=== PATIENT | female | born 1940 | race Caucasian/White ===

== ENCOUNTER → 2016-08-03 | Outpatient (CLI) | payer MEDICARE, OTHER ==
[~2016-08-03] MED LIST: AMINOPHYLLINE INJ/PF 250 MG/10 ML SDV IV ONE; REGADENOSON INJ 0.4 MG/5 ML DISP.SYRIN IV ONE
--- NOTE | 2016-08-03 17:13 | DRAGON STRESS TEST REPORT ---
INTRAVENOUS LEXISCAN CARDIOLITE STRESS TEST USING SINGLE PHOTON EMMISION COMPUTERIZED TOMOGRAPHIC. DATE OF PROCEDURE: August 03, 2016 INDICATION : Coronary artery disease with prior history of myocardial infarction CARDIAC RISK FACTORS: Hypertension, dyslipidemia. RESTING EKG: Sinus rhythm, no baseline ST segment changes noted STRESS EKG: No significant changes noted with LexiScan bolus REASON FOR TERMINATION: Protocol. PROCEDURE REPORT: Baseline heart rate 69 beats per minute with blood pressure of 176/77. Patient had no significant complaints. Heart rate at 2 minutes post bolus 97 with a blood pressure of 175/54. 3 minutes post bolus heart rate 98 with blood pressure of 164/50. No significant EKG changes were noted. Patient had no significant complaints during the procedure or postprocedure. Patient injected with Aminophyllin 75 mg at 3 minutes or later after Lexiscan bolus. CONCLUSIONS: Normal EKG and hemodynamic response to IV LexiScan. NUCLEAR DATA: At rest the patient was given 10.71 millicuries of technetium 99 sestamibi injected intravenously. As per protocol rest gated SPECT images were obtained. Subsequently the patient was given intravenous LexiScan at a dose of 0.4 mg in 5 mL intravenously, followed by flush with normal saline. Subsequently the stress dose of 32.4 millicuries of technetium 99 sestamibi was injected intravenously. As per protocol stress gated images were obtained. NUCLEAR INTERPRETATION: Both raw and processed data were used for interpretation. Visual, qualitative, computer-generated quantitative data was used. There was good myocardial uptake of technetium compound. Motion artifact and soft tissue attenuations were noted. Increased visceral uptake was noted. No definitive areas of transient perfusion defect noted. No definitive areas of fixed perfusion defect or scars noted. EKG gated imaging showed LV EF at 68 %, rest and stress gated EF similar visually. T. I D. ratio was 1.02. Lung heart ratio noted to be within normal limits 0.37. No significant extracardiac and abnormal radiotracer activities were noted. RV free wall uptake was noted to be normal. IMPRESSION: Also refer to comments under nuclear interpretation. Also test results needs to be interpreted in the context of pretest probability. 1. There is no definitive scintigraphic evidence of LexiScan induced myocardial ischemia. 2. There is no definitive scintigraphic evidence of myocardial infarction/scar. 3. EKG gated imaging shows left ejection fraction of approximately 68 %. 4. Clinical correlation requested as occasionally single vessel disease or balanced ischemia could be missed. In approximately 10% of the cases Lexiscan may not cause adequate vasodilatory stress. RECOMMENDATIONS: Aggressive risk factor modification, medical therapy. Clinical correlation with echocardiogram derived ejection fraction. Inability to exercise by itself can lead to increased cardiovascular event risks. Jordon Mccoy M.D., [facility] [employer] wheel [employer], Board certified in cardiovascular diseases, Nuclear cardiology, Echocardiography Cardiac CT and cardiac MRI Ph. [phone] [facility]
== END ==
LOC: RAD 07:10
PROVIDERS: ATTEND Internal Medicine Cardiovascular Disease
DX: I25.10 Atherosclerotic heart disease of native coronary artery without angina pectoris (principal); I25.2 Old myocardial infarction; I10 Essential (primary) hypertension; E78.5 Hyperlipidemia, unspecified
CPT/HCPCS: 93017; 78452; A9500; J2785; J0280; Q9969

== ENCOUNTER 2018-07-03 10:54 | Emergency (ER) | payer MEDICARE ==
[2018-07-03 11:05] VITALS: BP 149/58
--- NOTE | 2018-07-03 11:27 | ER Document Report ---
Addendum entered and electronically signed by EDWIGE BARRERA PA-C 07/03/18 14:19: Course - Re-evaluation Re-evalutation: 07/03/18 14:17 Patient is requesting to sign out AGAINST MEDICAL ADVICE. I did review the basic labs and imaging that were performed and the radiologist is recommending further x-ray imaging and/or CT to further evaluate the possible mass in her lung. I did review this with patient and advised her that it would be landa if she stayed to get evaluated as this can be a cancerous finding. I also reviewed that she can go home and . Patient states that she is feeling much better and does not want to stay for any imaging. She is aware that this can be a cancerous finding and states "we will deal with it when it comes." She is aware that she can go home and . She is still requesting to sign out AMA. Family is with her and would like to go as well and will keep an eye on her. Strict return precautions reviewed. Patient to recheck with her PCM this week. - Vital Signs Vital signs: Temp Pulse Resp BP Pulse Ox 97.8 F 82 24 H 149/58 H 98 07/03/18 11:03 07/03/18 11:03 07/03/18 11:03 07/03/18 11:03 07/03/18 11:03 - Laboratory Result Diagrams: 07/03/18 12:05 07/03/18 12:05 Laboratory results interpreted by me: 07/03/18 07/03/18 07/03/18 11:53 12:05 12:05 Seg Neutrophils % 83.1 H Lymphocytes % 9.2 L Sodium 135.0 L Urine Blood SMALL H Ur Leukocyte Esterase TRACE H Discharge - Discharge Clinical Impression: Dizziness, Pleural thickening, Lung mass Chest pain Qualifiers: Chest pain type: unspecified Qualified Code(s): R07.9 - Chest pain, unspecified Condition: Stable Disposition: AGAINST MEDICAL ADVICE Referrals: NIHARIKA SALES MD [Primary Care Provider] - Follow up as needed Original Note: ED Medical Screen (RME) - General Chief Complaint: Dizziness Stated Complaint: DIZZINESS Time Seen by Provider: 07/03/18 11:26 Primary Care Provider: NIHARIKA SALES MD [Primary Care Provider] - Follow up as needed TRAVEL OUTSIDE OF THE [place] IN LAST 30 DAYS: No - HPI Notes: 07/03/18 11:26 Patient is a 78-year-old female with a history of hypertension, hyperglyceridemia, vertigo who presents emergency department with family complai cari of chest discomfort/pressure with associated dizziness that began around 9 AM. Patient was given a nitro at her doctor's office morning and sent to the emergency department for evaluation. Patient states that she does feel "shaky" as well. No history of cardiac stents or bypass performed. She is being treated for a urinary infection currently. Denies LAMBERT, fever, neck pain, URI, Abd pain, n/v/d, or rash. I have treated and performed a rapid initial assessment of this patient. A comprehensive ED assessment and evaluation of the patient, analysis of test results and completion of medical decision making process will be conducted by additional ED providers. PHYSICAL EXAMINATION: GENERAL: Well-appearing, well-nourished and in no acute distress. A&Ox4. Answers questions appropriately. LUNGS: Breath sounds clear to auscultation bilaterally and equal. No wheezes rales or rhonchi. HEART: Regular rate and rhythm without murmurs, rubs, gallops. - Related Data Allergies/Adverse Reactions: No Known Allergies Allergy (Verified 07/03/18 11:11) Past Medical History - Social History Frequency of alcohol use: None Drug Abuse: None - Past Medical History Cardiac Medical History: Reports: Hx Heart Attack, Hx Hypercholesterolemia, Hx Hypertension Renal/ Medical History: Denies: Hx Peritoneal Dialysis GI Medical History: Reports: Hx Gastroesophageal Reflux Disease Past Surgical History: Reports: Hx Hysterectomy Physical Exam - Vital signs Vitals: Temp Pulse Resp BP Pulse Ox 97.8 F 82 24 H 149/58 H 98 07/03/18 11:03 07/03/18 11:03 07/03/18 11:03 07/03/18 11:03 07/03/18 11:03 Course - Vital Signs Vital signs: Temp Pulse Resp BP Pulse Ox 97.8 F 82 24 H 149/58 H 98 07/03/18 11:03 07/03/18 11:03 07/03/18 11:03 07/03/18 11:03 07/03/18 11:03 Doctor's Discharge - Discharge Referrals: NIHARIKA SALES MD [Primary Care Provider] - Follow up as needed
--- NOTE | 2018-07-03 11:56 | RADIOLOGY REPORT (SQ) ---
EXAM DESCRIPTION: CHEST SINGLE VIEW COMPLETED DATE/TIME: 07/03/2018 11:35 am REASON FOR STUDY: CP COMPARISON: None. EXAM PARAMETERS: NUMBER OF VIEWS: One view. TECHNIQUE: Single frontal radiographic view of the chest acquired. RADIATION DOSE: NA LIMITATIONS: None. FINDINGS: LUNGS AND PLEURA: Emphysematous change. Asymmetric soft tissue density at the right lung apex possibly pleural thickening. No dense consolidation, pleural effusion or pneumothorax. Linear right mid lung scarring or atelectasis. MEDIASTINUM AND HILAR STRUCTURES: No discrete mass. HEART AND VASCULAR STRUCTURES: Normal heart size. Aortic atherosclerosis. BONES: Osteopenia. HARDWARE: Round radiopaque densities overlie left axilla. OTHER: No other significant finding. IMPRESSION: Asymmetric soft tissue density over the right lung apex possibly pleural thickening alth ough airspace disease or apical mass is not entirely excluded. Repeat two view radiographs or CT cou ld be considered for further characterization. No additional evidence of acute cardiopulmonary process. TECHNICAL DOCUMENTATION: JOB ID: [id number] [email or web address]- All Rights Reserved Reading location - IP/workstation name: [email or web address]
[2018-07-03 12:14] LABS: ABSOLUTE BASOPHILS # (AUTO) 0.1 10^3/uL (0.0-0.2); ABSOLUTE EOSINOPHILS # (AUTO) 0.1 10^3/uL (0.0-0.6); ABSOLUTE LYMPHOCYTES (AUTO) 0.7 10^3/uL (0.5-4.7); ABSOLUTE MONOCYTES (AUTO) 0.4 10^3/uL (0.1-1.4); ABSOLUTE NEUT (AUTO) 6.6 10^3/uL (1.7-8.2); BASOPHILS % (AUTO) 0.7 % (0-2); EOSINOPHILS % (AUTO) 1.5 % (0-6); HEMATOCRIT 37.5 % (36.0-47.0); LYMPHOCYTES % (AUTO) 9.2 % (13-45); MEAN CORPUSCULAR HEMOGLOBIN 29.3 pg (27.0-33.4); MEAN CORPUSCULAR HGB CONC 34.5 g/dL (32.0-36.0); MEAN CORPUSCULAR VOLUME 85 fl (80-97); MONOCYTES % (AUTO) 5.5 % (3-13); PLATELET COUNT 272 10^3/uL (150-450); RED BLOOD COUNT 4.42 10^6/uL (3.72-5.28); RED CELL DISTRIBUTION WIDTH 13.2 % (11.5-14.0); SEGMENTED NEUTROPHILS % (AUTO) 83.1 % (42-78); TOTAL CELLS COUNTED % (AUTO) 100 %; WHITE BLOOD COUNT 7.9 10^3/uL (4.0-10.5)
[2018-07-03 12:32] LABS: ALANINE AMINOTRANSFERASE 22 U/L (9-52); ALBUMIN 4.2 g/dL (3.5-5.0); ALKALINE PHOSPHATASE 82 U/L (38-126); ANION GAP 8 (5-19); ASPARTATE AMINO TRANSFERASE 23 U/L (14-36); BILIRUBIN,DIRECT 0.2 mg/dL (0.0-0.4); BILIRUBIN,TOTAL 0.4 mg/dL (0.2-1.3); BLOOD UREA NITROGEN 12 mg/dL (7-20); CALCIUM 9.7 mg/dL (8.4-10.2); CARBON DIOXIDE 26 mmol/L (22-30); CHLORIDE 101 mmol/L (98-107); GLUCOSE 103 mg/dL (75-110); TOTAL PROTEIN 6.8 g/dL (6.3-8.2)
[2018-07-03 12:41] LABS: APPEARANCE,URINE SLIGHTLY-CLOUDY; BILIRUBIN,URINE NEGATIVE (NEGATIVE); COLOR,URINE YELLOW; GLUCOSE, URINE NEGATIVE (NEGATIVE); KETONES,URINE NEGATIVE (NEGATIVE); LEUKOCYTE ESTERASE,URINE TRACE (NEGATIVE); NITRITE,URINE NEGATIVE (NEGATIVE); PROTEIN,URINE NEGATIVE (NEGATIVE); URINE SPECIFIC GRAVITY 1.015; UROBILINOGEN,URINE NEGATIVE mg/dL (<2.0)
--- NOTE | 2018-07-03 21:52 | EKG REPORT ---
SEVERITY:- OTHERWISE NORMAL ECG - SINUS RHYTHM BORDERLINE LEFT AXIS DEVIATION : Confirmed by: Meli Jennings MD 03-Jul-2018 21:51:45
== END 2018-07-03 14:20 | disposition left against medical advice (07) ==
LOC: ER 10:54
DX: R42 Dizziness and giddiness (principal); R07.9 Chest pain, unspecified; R91.8 Other nonspecific abnormal finding of lung field; J92.9 Pleural plaque without asbestos; I10 Essential (primary) hypertension; E78.5 Hyperlipidemia, unspecified; I25.2 Old myocardial infarction; Z90.710 Acquired absence of both cervix and uterus
CPT/HCPCS: 36415; 71045; 80053; 81001; 84484; 85025; 93005; 93010; 99284

== ENCOUNTER 2019-02-19 05:25 | Day surgery (SDC) | payer MEDICARE, OTHER ==
[2019-02-12 09:57] LABS: HEMATOCRIT 36.3 % (36.0-47.0); HEMOGLOBIN 12.3 g/dL (12.0-15.5); MEAN CORPUSCULAR HEMOGLOBIN 29.5 pg (27.0-33.4); MEAN CORPUSCULAR HGB CONC 33.8 g/dL (32.0-36.0); MEAN CORPUSCULAR VOLUME 87 fl (80-97); PLATELET COUNT 245 10^3/uL (150-450); RED BLOOD COUNT 4.16 10^6/uL (3.72-5.28); RED CELL DISTRIBUTION WIDTH 14.2 % (11.5-14.0); WHITE BLOOD COUNT 5.6 10^3/uL (4.0-10.5)
[2019-02-12 10:01] LABS: APPEARANCE,URINE SLIGHTLY-CLOUDY; BILIRUBIN,URINE NEGATIVE (NEGATIVE); COLOR,URINE YELLOW; GLUCOSE, URINE NEGATIVE (NEGATIVE); KETONES,URINE NEGATIVE (NEGATIVE); LEUKOCYTE ESTERASE,URINE MODERATE (NEGATIVE); NITRITE,URINE NEGATIVE (NEGATIVE); PROTEIN,URINE NEGATIVE (NEGATIVE); URINE SPECIFIC GRAVITY 1.011; UROBILINOGEN,URINE NEGATIVE mg/dL (<2.0)
[~2019-02-19 05:25] MED LIST changes: -AMINOPHYLLINE INJ/PF 250 MG/10 ML SDV IV ONE; +CEFAZOLIN SODIUM 1 GM in DEXTROSE 5%-WATER 50 ML IV PRN; +LACTATED RINGERS 1000 ML IV PRN; +LIDOCAINE 0.5% INJ-PF (5 MG/ML) 50 ML SDV SUBCUT PRN; -REGADENOSON INJ 0.4 MG/5 ML DISP.SYRIN IV ONE; +SCOPOLAMINE HYDROBROMIDE 1.5 MG PATCH.TD72 TD PRN
[2019-02-19] MEDS ORDERED: SCOPOLAMINE HYDROBROMIDE 1.5 MG PATCH.TD72 ONE (05:55)
[2019-02-19] MEDS ORDERED: FENTANYL CITRATE INJ/PF 100 MCG/2 ML AMPUL ONE (07:03)
[2019-02-19] MEDS ORDERED: MIDAZOLAM 2 MG/2 ML INJ ONE (07:03)
[2019-02-19] MEDS ORDERED: PROPOFOL INJ 200 MG/20 ML VIAL IV ONE (07:03)
[2019-02-19] MEDS ORDERED: EPHEDRINE SULFATE INJ 50 MG/1 ML AMPULE ONE (07:03)
[2019-02-19] MEDS ORDERED: FENTANYL CITRATE INJ/PF 100 MCG/2 ML AMPUL IV PRN ×3 (08:01)
[2019-02-19] MEDS ORDERED: DIPHENHYDRAMINE HCL 50 MG/ML VIAL IV PRN (08:01)
[2019-02-19] MEDS ORDERED: PROMETHAZINE HCL INJ 25 MG/1 ML VIAL IV PRN ×2 (08:01)
[2019-02-19] MEDS ORDERED: OXYCODONE-ACETAMINOPHEN 5-325 MG TABLET PO PRN ×3 (08:01→10:41)
[2019-02-19] MEDS ORDERED: MEPERIDINE HCL/PF INJ 25 MG/1 ML DISP.SYRIN IV PRN (08:01)
--- NOTE | 2019-02-19 08:59 | Operative Report ---
Operative Report DATE OF SURGERY: 02/19/19 PREOPERATIVE DIAGNOSIS: Cystocele rectocele and enterocele POSTOPERATIVE DIAGNOSIS: Same OPERATION: ANP repair sacral spinous ligament vaginal suspension SURGEON: HEIDY CASTAÑEDA ANESTHESIA: GA TISSUE REMOVED OR ALTERED: Vaginal mucosa COMPLICATIONS: None ESTIMATED BLOOD LOSS: Less than 50 cc PROCEDURE: Patient was placed in a dorsal lithotomy position prepped draped sterile fashion. Vaginal mucosa was grasped centimeter below the urethra and the vaginal tissue was then divided in the midline to just above the old vaginal cuff Vesicovaginal tissue was bluntly and sharply divided. Vaginal tissue was then plicated midline uterine multiple 2-0 Vicryl sutures. Excess vaginal mucosa was then excised. In the vaginal defect was then closed using 2-0 Vicryl. Posterior repair was accomplished by grasping the vagina the remnants of the hymenal ring entering the mucosa crosswise and then in the midline to just below the old cuff. Underlying rectovaginal tissue was bluntly sharply divided. Using the anchor sure of the right sacral spinous ligament was identified and the anchor sure was placed into the ligament. The free and was then placed into the vaginal mucosa at the apex. Underlying rectovaginal tissue was then plicated with multiple 2-0 Vicryl sutures. Suspect mucosa was then sharply excised. Previously placed anchor sure suture was then plicated to the ligament. The defect was closed with running suture of 2-0 Vicryl. The patient's urine remained clear throughout the procedure and after the procedure was terminated she was taken recovery room in good condition
[2019-02-19] MEDS ORDERED: ONDANSETRON 4 MG TAB.RAPDIS PO PRN (10:41)
--- NOTE | 2019-02-19 11:41 | RADIOLOGY REPORT (SQ) ---
EXAM DESCRIPTION: CHEST SINGLE VIEW COMPLETED DATE/TIME: 02/19/2019 10:33 am REASON FOR STUDY: CRACKLES COMPARISON: PA view of the chest from 07/03/2018. EXAM PARAMETERS: NUMBER OF VIEWS: One view. TECHNIQUE: Single frontal radiographic view of the chest acquired. RADIATION DOSE: NA LIMITATIONS: None. FINDINGS: LUNGS AND PLEURA: Left basilar atelectasis. There is no consolidation, sizeable pleural e ffusion or pneumothorax. MEDIASTINUM AND HILAR STRUCTURES: Stable mediastinal and hilar contours. HEART AND VASCULAR STRUCTURES: Stable cardiac silhouette. BONES: No acute findings. HARDWARE: None in the chest. OTHER: No other finding. IMPRESSION: Left basilar atelectasis. TECHNICAL DOCUMENTATION: JOB ID: [id number] [employer]- All Rights Reserved Reading location - IP/workstation name: [email or web address]
[2019-02-19] MEDS ORDERED: IBUPROFEN 800 MG TABLET PO SCH (14:00)
[2019-02-19] MEDS ORDERED: KETOROLAC TROMETHAMINE 60 MG/2 ML SDV ONE (14:14)
[2019-02-19] MEDS ORDERED: ONDANSETRON HCL INJ/PF 4 MG/2 ML SDV ONE (14:14)
[2019-02-19] MEDS ORDERED: LIDOCAINE 2% INJ-PF (20 MG/ML) 2 ML AMPUL ONE (14:14)
[2019-02-19] MEDS ORDERED: DEXAMETHASONE SOD PHOSPHATE INJ 4 MG/1 ML VIAL ONE (14:14)
[2019-02-19] MEDS ORDERED: SUCCINYLCHOLINE CHLORIDE INJ 200 MG/10 ML VIAL ONE (14:14)
[2019-02-19 17:46] VITALS: BP 152/78
== END 2019-02-19 17:56 | disposition home or self-care (01) ==
LOC: OROUT 05:25 → 2N 12:00 → OROUT 17:56
PROVIDERS: ATTEND Obstetrics & Gynecology Gynecology
DX: N81.11 Cystocele, midline (principal); N81.6 Rectocele; E78.5 Hyperlipidemia, unspecified; I10 Essential (primary) hypertension; Z79.899 Other long term (current) drug therapy; Z79.82 Long term (current) use of aspirin
CPT/HCPCS: 36415 ×2; 84132; 85027; 81001; 71045; 00942; 57260; J2250; J0690; A9270; J1100; J1885; J3010; J0330; J2405; J7060; J2704; J3490; 942